=== PATIENT | male | born 1965 | race African-American/Black ===

== ENCOUNTER 2024-07-04 12:13 | Inpatient (IN) | payer OTHER ==
[~2024-07-04] VITALS: Ht 180.3 cm; Wt 111.7 kg
[2024-07-04] MEDS: DILTIAZEM HCL 5MG/ML 5ML VIAL IV ONE (13:09)
[2024-07-04] MEDS: SODIUM CHLORIDE 0.9% 1,000 ML IV ONE (13:09)
[2024-07-04 13:11] LABS: BASOPHILS % 0.9 % (0.0-2.0); EOSINOPHILS % 1.8 % (0.0-5.0); HEMATOCRIT. 41.1 % (42.0-52.0); HEMOGLOBIN. 13.3 g/dL (14.0-18.0); LYMPHOCYTES % 16.2 % (20.0-50.0); MEAN CORPUSCULAR HEMOGLOBIN 28.7 pg (28.0-32.0); MEAN CORPUSCULAR HGB CONC 32.4 g/dL (31.0-37.0); MEAN CORPUSCULAR VOLUME 88.6 fL (80.0-94.0); MEAN PLATELET VOLUME 7.3 fl (7.4-10.4); MONOCYTES % 10.5 % (2.0-8.0); NEUTROPHILS % 70.6 % (40.0-76.0); PLATELET 224 x1000/uL (130-400); RED BLOOD CELL COUNT 4.64 mill/uL (4.7-6.1); RED CELL DISTRIBUTION WIDTH 15.5 % (11.6-14.6); WHITE BLOOD COUNT 6.6 x1000/uL (4.5-11.0)
[2024-07-04 13:23] LABS: CHLORIDE 108 mEq/L (98-107); SODIUM 143 mEq/L (136-145)
[2024-07-04 13:24] LABS: CARBON DIOXIDE 26 mEq/L (21-32)
[2024-07-04 13:25] LABS: CALCIUM 9.3 mg/dL (8.7-10.4)
[2024-07-04 13:29] LABS: CREATININE 1.1 mg/dL (0.6-1.3)
[2024-07-04 13:30] LABS: GLUCOSE 129 mg/dL (70-105); UREA NITROGEN BLOOD 11 mg/dL (9-23)
[2024-07-04 13:31] LABS: ALANINE AMINOTRANSFERASE 15 IU/L (10-49); ASPARTATE AMINOTRANSFERASE 27 IU/L (<34)
[2024-07-04 13:32] LABS: ALBUMIN 4.3 g/dL (3.2-4.8); BILIRUBIN DIRECT 0.2 mg/dL (<=3.0); BILIRUBIN TOTAL 0.7 mg/dL (0.1-1.0); PROTEIN TOTAL 7.4 g/dL (6.0-8.3); TROPONIN I HIGH SENSITIVITY 9 ng/L (3.0-53)
[2024-07-04 13:36] LABS: D-DIMER 1.63 mg/L FEU (<0.50); PARTIAL THROMBOPLASTIN TIME 26.5 sec (23.4-31.0); PROTHROMBIN TIME 11.2 sec (9.6-11.0)
[2024-07-04 13:48] LABS: ETHANOL BLOOD < 10 mg/dL (<10)
[2024-07-04] MEDS ORDERED: NICARDIPINE 50 MG in SODIUM CHLORIDE 0.9% 230 ML IV NR (16:51)
[2024-07-04 17:22] LABS: TROPONIN I HIGH SENSITIVITY 9 ng/L (3.0-53)
[2024-07-04] MEDS: NICARDIPINE 40MG/200ML PREMIX 200 ML IV STA (18:04)
[2024-07-04] MEDS: DILTIAZEM HCL 125 MG in DEXT 5% WATER 100 ML IV NR (19:49)
[2024-07-04] MEDS: DILTIAZEM HCL 125 MG in DEXT 5% WATER 100 ML IV ONE (19:50)
[2024-07-04] MEDS ORDERED: HYDROCODONE/ACETAMINOPHEN 5/325MG TABLET PO PRN (21:00)
[2024-07-04] MEDS ORDERED: MAGNESIUM/ALUMINUM HYDROXIDE/SIMETHICONE 30ML UDC PO PRN (21:00)
[2024-07-04] MEDS ORDERED: GUAIFENESIN 200MG/10ML SUGAR FREE UDC PO PRN (21:00)
[2024-07-04] MEDS ORDERED: NA PHOS,M-B/NA PHOS,DI-BA ENEMA 118ML PR PRN (21:00)
[2024-07-04] MEDS ORDERED: IPRATROPIUM/ALBUTEROL 0.5-3(2.5)MG/3ML NEB HHN PRN (21:00)
[2024-07-04] MEDS ORDERED: ACETAMINOPHEN 325MG TABLET PO PRN ×2 (21:00)
[2024-07-04] MEDS ORDERED: DOCUSATE SODIUM 100MG CAPSULE PO PRN (21:00)
[2024-07-04] MEDS ORDERED: ONDANSETRON HCL 4MG/2ML INJ IV PRN (21:00)
[2024-07-04] MEDS ORDERED: CLONIDINE 0.1MG TABLET PO PRN (21:00)
[2024-07-04] MEDS ORDERED: DIPHENHYDRAMINE 50MG/ML VIAL IV PRN (21:00)
[2024-07-04] MEDS ORDERED: ENOXAPARIN 40MG/0.4ML SYR SUBCUT SCH (21:00)
[2024-07-04] MEDS ORDERED: NALOXONE HCL 0.4MG/ML VIAL IV PRN (21:30)
[2024-07-04] MEDS: PANTOPRAZOLE SODIUM 40 MG/VIAL IV NR (21:41)
[2024-07-04] MEDS: IOHEXOL-350 100 ML BOTTLE ONE (23:37)
[2024-07-05] VITALS (9 sets, daily range): BP systolic 103–135; BP diastolic 79–90; PULSE 103–129; RESP 17–22; TEMP 35.7–36.8; O2SAT 96–100
[2024-07-05] MEDS ORDERED: DILTIAZEM HCL 125 MG in DEXT 5% WATER 100 ML IV PRN (08:00)
[2024-07-05] MEDS ORDERED: NICARDIPINE 50 MG in SODIUM CHLORIDE 0.9% 230 ML IV PRN (08:00)
[2024-07-05] MEDS: PANTOPRAZOLE SODIUM 40 MG/VIAL IV SCH (09:00)
[2024-07-05 09:57] LABS: CHLORIDE 108 mEq/L (98-107); POTASSIUM 3.9 mEq/L (3.5-5.1); SODIUM 143 mEq/L (136-145)
[2024-07-05 09:58] LABS: BASOPHILS % 0.7 % (0.0-2.0); CALCIUM 9.3 mg/dL (8.7-10.4); CARBON DIOXIDE 25 mEq/L (21-32); EOSINOPHILS % 2.5 % (0.0-5.0); HEMATOCRIT. 42.1 % (42.0-52.0); HEMOGLOBIN. 13.6 g/dL (14.0-18.0); LYMPHOCYTES % 20.9 % (20.0-50.0); MEAN CORPUSCULAR HEMOGLOBIN 28.3 pg (28.0-32.0); MEAN CORPUSCULAR HGB CONC 32.4 g/dL (31.0-37.0); MEAN CORPUSCULAR VOLUME 87.3 fL (80.0-94.0); MEAN PLATELET VOLUME 7.2 fl (7.4-10.4); MONOCYTES % 11.2 % (2.0-8.0); NEUTROPHILS % 64.7 % (40.0-76.0); PLATELET 221 x1000/uL (130-400); RED BLOOD CELL COUNT 4.82 mill/uL (4.7-6.1); WHITE BLOOD COUNT 5.2 x1000/uL (4.5-11.0)
[2024-07-05 10:03] LABS: GLUCOSE 108 mg/dL (70-105); TRIGLYCERIDE 122 mg/dL (0-150); UREA NITROGEN BLOOD 10 mg/dL (9-23)
[2024-07-05 10:04] LABS: LDL CHOLESTEROL 127 mg/dL (5-100)
[2024-07-05 10:05] LABS: CHOLESTEROL 194 mg/dL (<200); HDL CHOLESTEROL 46 mg/dL (>55)
[2024-07-05 10:08] LABS: THYROID STIMULATING HORMONE 1.43 uIU/mL (0.55-4.78)
[2024-07-05] MEDS: DILTIAZEM HCL 30MG TABLET PO SCH (12:00)
[2024-07-05] MEDS: ENOXAPARIN 120MG/0.8ML SYR SUBCUT SCH (21:32)
[2024-07-05 23:46] LABS: INFLUENZA TYPE A Presumptive Negative (Pres. Neg.); INFLUENZA TYPE B Presumptive Negative (Pres. Neg.)
[2024-07-06] VITALS (12 sets, daily range): BP systolic 97–134; BP diastolic 67–105; PULSE 108–131; RESP 15–27; TEMP 36.1–37; O2SAT 94–99
[2024-07-06 06:20] LABS: CALCIUM 9.3 mg/dL (8.7-10.4); CHLORIDE 108 mEq/L (98-107); SODIUM 142 mEq/L (136-145)
[2024-07-06 06:21] LABS: CARBON DIOXIDE 25 mEq/L (21-32)
[2024-07-06 06:26] LABS: CREATININE 1.2 mg/dL (0.6-1.3); GLUCOSE 107 mg/dL (70-105); UREA NITROGEN BLOOD 14 mg/dL (9-23)
[2024-07-06 07:29] LABS: HEMATOCRIT 40.7 % (42.0-52.0); HEMOGLOBIN 13.4 g/dL (14.0-18.0); MEAN CORPUSCULAR HEMOGLOBIN 28.8 pg (28.0-32.0); MEAN CORPUSCULAR HGB CONC 33.1 g/dL (31.0-37.0); MEAN CORPUSCULAR VOLUME 87.1 fL (80.0-94.0); PLATELET 241 x1000/uL (130-400); RED BLOOD CELL COUNT 4.67 mill/uL (4.7-6.1); RED CELL DISTRIBUTION WIDTH 15.2 % (11.6-14.6); WHITE BLOOD COUNT 5.8 x1000/uL (4.5-11.0)
[2024-07-06] MEDS: DILTIAZEM HCL 60MG TABLET PO SCH (12:36)
[2024-07-06 15:58] LABS: CLARITY URINE CLEAR (CLEAR); COLOR URINE YELLOW (YELLOW); GLUCOSE URINE NEGATIVE (NEGATIVE); KETONES URINE NEGATIVE (NEGATIVE); LEUKOCYTE ESTERASE URINE NEGATIVE (NEGATIVE); NITRITE URINE NEGATIVE (NEGATIVE); OCCULT BLOOD URINE NEGATIVE (NEGATIVE); PH URINE 5.5 (4.5-8.0); PROTEIN URINE NEGATIVE (NEGATIVE); SPECIFIC GRAVITY URINE 1.019 (1.005-1.030); UROBILINOGEN URINE 0.2 E.U./dL (0.2-1.0)
[2024-07-06 16:10] LABS: *AMPHETAMINES SCREEN URINE NEGATIVE (NEGATIVE); *BARBITURATES SCREEN URINE NEGATIVE (NEGATIVE); *BENZODIAZEPINES SCREEN URINE NEGATIVE (NEGATIVE); *COCAINE SCREEN URINE NEGATIVE (NEGATIVE); CANNABINOID URINE SCREEN NEGATIVE (NEGATIVE); ECSTASY MDMA SCREEN URINE NEGATIVE (NEGATIVE); METHADONE URINE SCREEN NEGATIVE (NEGATIVE); OPIATES URINE SCREEN NEGATIVE (NEGATIVE); PHENCYCLIDINE URINE SCREEN NEGATIVE (NEGATIVE)
[2024-07-07] VITALS (11 sets, daily range): BP systolic 101–128; BP diastolic 65–97; PULSE 97–133; RESP 12–25; TEMP 36.3–36.9; O2SAT 94–99
[2024-07-07] MEDS: FAMOTIDINE 20MG/2ML VIAL IV SCH (09:51)
[2024-07-07] MEDS: DIGOXIN 500MCG/2ML AMP IV NR (10:16)
[2024-07-07] MEDS: DILTIAZEM HCL 90MG TABLET PO SCH (13:08)
[2024-07-07] MEDS: DIGOXIN 125MCG TABLET PO SCH (18:48)
[2024-07-08] VITALS: BP 114/86; PULSE 88; RESP 15; TEMP 36.3; O2SAT 95
[2024-07-08 04:00] VITALS: BP 108/79; PULSE 85; RESP 13; TEMP 36.2; O2SAT 93
[2024-07-08 08:00] VITALS: BP 106/61; PULSE 100; RESP 16; TEMP 36.3; O2SAT 93
[2024-07-08 12:00] VITALS: BP 123/77; PULSE 114; RESP 18; TEMP 36.5; O2SAT 92
[2024-07-08] MEDS ORDERED: APIXABAN 5 MG TABLET PO SCH ×2 (12:00→21:00)
[2024-07-08] MEDS: DILTIAZEM HCL 90MG TABLET PO SCH (12:01)
[2024-07-08] MEDS ORDERED: DIGO250T79 MT (14:38)
[2024-07-08] MEDS ORDERED: DILT240C91 MT (14:38)
[2024-07-08] MEDS ORDERED: APIX5TAB MT (14:38)
[2024-07-08 15:25] VITALS: BP 108/82; PULSE 93; O2SAT 98
[2024-07-08 16:00] VITALS: BP 124/83; PULSE 91; RESP 12; TEMP 36.6; O2SAT 98
[2024-07-08] MEDS ORDERED: DIGOXIN 125MCG TABLET PO SCH (18:00)
== END 2024-07-08 16:25 | disposition home or self-care (01) | DRG 310 ==
LOC: ER 12:13 → 5EST 16:54 → EDBEDREQ 16:56 → EDBEDREQTM 16:56 → EDBEDREQSVC 16:56
PROVIDERS: ADMIT Hospitalist; ATTEND Hospitalist
DX: I48.92 Unspecified atrial flutter (principal); I47.19 Other supraventricular tachycardia; I16.0 Hypertensive urgency; I48.91 Unspecified atrial fibrillation; D50.9 Iron deficiency anemia, unspecified; I11.9 Hypertensive heart disease without heart failure; Z85.46 Personal history of malignant neoplasm of prostate; Z90.79 Acquired absence of other genital organ(s); I50.9 Heart failure, unspecified; Z82.49 Family history of ischemic heart disease and other diseases of the circulatory system; Z79.899 Other long term (current) drug therapy; R73.9 Hyperglycemia, unspecified; I34.0 Nonrheumatic mitral (valve) insufficiency
CPT/HCPCS: 36415; 71045; 71275; 80048; 80061; 80076; 80305; 80320; 81003; 83735; 83880; 84439; 84443; 84481; 84484; 85025; 85027; 85379; 87804; 93005; 93306; 93970; 94640; 99291; A4606; A4663; J1160; J1650; J2470; J3490; J7030; J7050; J7060; Q9967; G0480

== ENCOUNTER 2024-10-03 16:02 | Emergency (ER) | payer OTHER ==
[~2024-10-03] VITALS: Ht 188 cm; Wt 111.0 kg
[~2024-10-03 16:02] MED LIST: APIX5TAB MT; DIGO250T79 MT; DILT240C91 MT
[2024-10-03 16:05] VITALS: O2SAT 99
[2024-10-03 16:18] VITALS: BP 120/72; PULSE 66; RESP 18; TEMP 37.3; O2SAT 97
[2024-10-03 18:19] LABS: BASOPHILS % 0.3 % (0.0-2.0); EOSINOPHILS % 1.2 % (0.0-5.0); HEMATOCRIT. 40.5 % (42.0-52.0); HEMOGLOBIN. 13.2 g/dL (14.0-18.0); LYMPHOCYTES % 22.2 % (20.0-50.0); MEAN CORPUSCULAR HEMOGLOBIN 26.8 pg (28.0-32.0); MEAN CORPUSCULAR HGB CONC 32.5 g/dL (31.0-37.0); MEAN CORPUSCULAR VOLUME 82.6 fL (80.0-94.0); MEAN PLATELET VOLUME 7.4 fl (7.4-10.4); MONOCYTES % 12.6 % (2.0-8.0); NEUTROPHILS % 63.7 % (40.0-76.0); PLATELET 241 x1000/uL (130-400); RED CELL DISTRIBUTION WIDTH 16.3 % (11.6-14.6)
[2024-10-03 18:26] LABS: CHLORIDE 105 mEq/L (98-107); POTASSIUM 4.4 mEq/L (3.5-5.1); SODIUM 142 mEq/L (136-145)
[2024-10-03 18:27] LABS: CALCIUM 9.4 mg/dL (8.7-10.4); CARBON DIOXIDE 27 mEq/L (21-32)
[2024-10-03 18:31] LABS: INR 1.2; PARTIAL THROMBOPLASTIN TIME 34.2 sec (23.4-31.0); PROTHROMBIN TIME 12.7 sec (9.6-11.0)
[2024-10-03 18:32] LABS: CREATININE 1.2 mg/dL (0.6-1.3); GLUCOSE 93 mg/dL (70-105); UREA NITROGEN BLOOD 14 mg/dL (9-23)
[2024-10-03] MEDS ORDERED: BO1 TP (18:58)
[2024-10-03] MEDS ORDERED: BACITRACIN ZINC OINT UDPKT TOP ONE (19:00)
== END 2024-10-03 19:40 | disposition home or self-care (01) ==
LOC: ER 16:02
DX: L30.9 Dermatitis, unspecified (principal); I10 Essential (primary) hypertension; Z85.9 Personal history of malignant neoplasm, unspecified; Z79.899 Other long term (current) drug therapy
CPT/HCPCS: 36415; 80048; 85025; 86850; 86900; 99283